=== PATIENT | female | born 1945 | race African-American/Black ===

== ENCOUNTER 2019-05-27 20:51 | Emergency (ER) | payer MEDICARE, OTHER ==
[~2019-05-27] VITALS: Ht 165.1 cm; Wt 54.5 kg
[2019-05-27] MEDS ORDERED: SODIUM CHLORIDE 0.9% 1,000 ML IV ONE (22:33)
[2019-05-27] MEDS ORDERED: PANTOPRAZOLE 40MG DR TABLET PO ONE (22:45)
[2019-05-27 23:08] LABS: BASOPHILS % 0.5 % (0.0-2.0); EOSINOPHILS % 0.8 % (0.0-5.0); HEMATOCRIT. 25.3 % (36.0-48.0); HEMOGLOBIN. 8.4 g/dL (12.0-16.0); LYMPHOCYTES % 18.3 % (20.0-50.0); MEAN CORPUSCULAR HEMOGLOBIN 29.6 pg (28.0-32.0); MEAN CORPUSCULAR VOLUME 89.1 fL (81.0-99.0); MEAN PLATELET VOLUME 9.6 fl (7.4-10.4); MONOCYTES % 6.9 % (2.0-8.0); NEUTROPHILS % 73.5 % (40.0-76.0); PLATELET 271 x1000/uL (130-400); RED BLOOD CELL COUNT 2.84 mill/uL (4.2-5.4); RED CELL DISTRIBUTION WIDTH 15.2 % (11.6-14.6)
[2019-05-27 23:13] LABS: CHLORIDE 106 mEq/L (98-107)
[2019-05-27 23:17] LABS: PARTIAL THROMBOPLASTIN TIME 21.9 sec (23.4-31.0)
[2019-05-28 05:20] VITALS: BP 152/65
== END 2019-05-28 05:20 | disposition home or self-care (01) ==
LOC: ER 20:51
DX: D50.0 Iron deficiency anemia secondary to blood loss (chronic) (principal); K29.21 Alcoholic gastritis with bleeding; F10.10 Alcohol abuse, uncomplicated; Y90.9 Presence of alcohol in blood, level not specified; Z71.41 Alcohol abuse counseling and surveillance of alcoholic; I10 Essential (primary) hypertension; F12.90 Cannabis use, unspecified, uncomplicated
CPT/HCPCS: 36415; 80053; 83690; 84484; 85025; 85610; 85730; 86850; 86900; 86901; 93005; 96360; 99285; J7030

== ENCOUNTER 2019-09-09 09:52 | Emergency (ER) | payer MEDICARE ==
[~2019-09-09] VITALS: Ht 162.6 cm; Wt 65.0 kg
[~2019-09-09 09:52] MED LIST: DOCU-138 MT; LACT10SO6 MT; LEVO500T2 PO; MEMA5TAB42 PO
[2019-09-09] MEDS ORDERED: ONDANSETRON HCL 4MG/2ML INJ IV STA (09:59)
[2019-09-09] MEDS ORDERED: FAMOTIDINE 20MG/2ML VIAL IV STA (09:59)
[2019-09-09] MEDS ORDERED: ENALAPRIL 2.5MG/2ML VIAL 2ML IV ONE (11:15)
[2019-09-09 11:34] LABS: BASOPHILS % 1.1 % (0.0-2.0); EOSINOPHILS % 0.6 % (0.0-5.0); HEMOGLOBIN. 10.4 g/dL (12.0-16.0); LYMPHOCYTES % 20.8 % (20.0-50.0); MEAN CORPUSCULAR HEMOGLOBIN 24.2 pg (28.0-32.0); MEAN CORPUSCULAR VOLUME 76.8 fL (81.0-99.0); MEAN PLATELET VOLUME 8.6 fl (7.4-10.4); MONOCYTES % 9.3 % (2.0-8.0); NEUTROPHILS % 68.2 % (40.0-76.0); PLATELET 334 x1000/uL (130-400); RED CELL DISTRIBUTION WIDTH 19.6 % (11.6-14.6)
[2019-09-09 11:39] LABS: CHLORIDE 105 mEq/L (98-107)
[2019-09-09 11:42] LABS: PROTHROMBIN TIME 10.9 sec (9.6-11.0)
[2019-09-09 11:45] LABS: ETHANOL BLOOD < 10 mg/dL
[2019-09-09 13:08] VITALS: BP 169/82
[2019-09-09] MEDS ORDERED: HYDRALAZINE 20MG/ML VIAL IV NR (13:15)
[2019-09-09 13:37] LABS: CLARITY URINE CLEAR (CLEAR); COLOR URINE YELLOW (YELLOW); KETONES URINE TRACE (NEGATIVE); LEUKOCYTE ESTERASE URINE 1+ (NEGATIVE); NITRITE URINE NEGATIVE (NEGATIVE); OCCULT BLOOD URINE NEGATIVE (NEGATIVE); PROTEIN URINE 2+ (NEGATIVE); SPECIFIC GRAVITY URINE 1.019 (1.005-1.030)
[2019-09-09 14:05] LABS: *AMPHETAMINES SCREEN URINE NEGATIVE (NEGATIVE); *BARBITURATES SCREEN URINE NEGATIVE (NEGATIVE); *BENZODIAZEPINES SCREEN URINE NEGATIVE (NEGATIVE); *COCAINE SCREEN URINE NEGATIVE (NEGATIVE)
[2019-09-09 14:06] LABS: CANNABINOID URINE SCREEN NEGATIVE (NEGATIVE); METHADONE URINE SCREEN NEGATIVE (NEGATIVE); OPIATES URINE SCREEN PRESUMTIVE POSITIVE (NEGATIVE); PHENCYCLIDINE URINE SCREEN NEGATIVE (NEGATIVE)
== END 2019-09-09 15:45 | disposition short-term general hospital (02) ==
LOC: ER 10:21
DX: R10.13 Epigastric pain (principal); R11.2 Nausea with vomiting, unspecified; R19.7 Diarrhea, unspecified; F03.90 Unspecified dementia, unspecified severity, without behavioral disturbance, psychotic disturbance, mood disturbance, and anxiety; K21.9 Gastro-esophageal reflux disease without esophagitis; I10 Essential (primary) hypertension; Z98.890 Other specified postprocedural states; F10.229 Alcohol dependence with intoxication, unspecified; Y90.0 Blood alcohol level of less than 20 mg/100 ml; Z88.0 Allergy status to penicillin; Z79.899 Other long term (current) drug therapy
CPT/HCPCS: 36415; 71045; 74176; 80053; 80305; 80320; 81003; 83690; 84484; 85025; 85610; 93005; 96374; 96375; 99285; J0360; J2405; J3490; G0480

== ENCOUNTER 2021-12-11 14:21 | Inpatient (IN) | payer MEDICARE, OTHER ==
[~2021-12-11] VITALS: Ht 165.1 cm; Wt 46.3 kg
[~2021-12-11 14:21] MED LIST changes: -LEVO500T2 PO; +PROT40 MT; +SUCR1TAB30 MT; +TOPUD MT
[2021-12-11 16:49] LABS: CHLORIDE 110 mEq/L (98-107)
[2021-12-11 17:06] LABS: EOSINOPHILS % 1.4 % (0.0-5.0); HEMATOCRIT. 34.5 % (36.0-48.0); HEMOGLOBIN. 10.6 g/dL (12.0-16.0); LYMPHOCYTES % 26.3 % (20.0-50.0); MEAN CORPUSCULAR HEMOGLOBIN 23.5 pg (28.0-32.0); MEAN CORPUSCULAR VOLUME 76.4 fL (81.0-99.0); MEAN PLATELET VOLUME 8.6 fl (7.4-10.4); MONOCYTES % 8.4 % (2.0-8.0); NEUTROPHILS % 62.9 % (40.0-76.0); PLATELET 256 x1000/uL (130-400); RED BLOOD CELL COUNT 4.52 mill/uL (4.2-5.4); RED CELL DISTRIBUTION WIDTH 19.1 % (11.6-14.6)
[2021-12-11] MEDS ORDERED: LABETALOL 5MG/ML SYR 20 MG/4 ML SYRINGE IV ONE (17:30)
[2021-12-11] MEDS ORDERED: LEVOFLOXACIN 750MG PREMIX 150 ML IV NR (17:45)
[2021-12-11] MEDS ORDERED: APIXABAN 5 MG TABLET PO NR (18:58)
[2021-12-11 23:00] VITALS: BP 190/90
[2021-12-12] MEDS ORDERED: POTASSIUM CHLORIDE 20MEQ TABLET SR PO NR (01:30)
[2021-12-12] MEDS ORDERED: LACTULOSE 20G/30ML UDC PO PRN (01:30)
[2021-12-12] MEDS: ACETAMINOPHEN 325MG TABLET PO PRN (01:54)
[2021-12-12] MEDS: CLONIDINE 0.1MG TABLET PO PRN ×3 (01:55→20:41)
[2021-12-12] MEDS: IPRATROPIUM/ALBUTEROL 0.5-3(2.5)MG/3ML NEB HHN PRN ×4 (02:02→21:05)
[2021-12-12 07:55] LABS: BASOPHILS % 0.7 % (0.0-2.0); EOSINOPHILS % 0.5 % (0.0-5.0); HEMATOCRIT. 31.2 % (36.0-48.0); HEMOGLOBIN. 9.6 g/dL (12.0-16.0); MEAN CORPUSCULAR HEMOGLOBIN 23.9 pg (28.0-32.0); MEAN CORPUSCULAR VOLUME 77.4 fL (81.0-99.0); MEAN PLATELET VOLUME 8.5 fl (7.4-10.4); MONOCYTES % 11.3 % (2.0-8.0); NEUTROPHILS % 65.5 % (40.0-76.0); PLATELET 255 x1000/uL (130-400); RED BLOOD CELL COUNT 4.03 mill/uL (4.2-5.4); RED CELL DISTRIBUTION WIDTH 19.3 % (11.6-14.6)
[2021-12-12 08:00] VITALS: BP 149/86
[2021-12-12 08:55] LABS: BG BASE EXCESS -2.8 mmol/L (-2.0-2.0); BG CARBOXYHEMOGLOBIN 0.3 % (0.5-1.5); BG DEOXYHEMOGLOBIN 1.9 % (0.0-5.0); BG FRACTION INSPIRED OXYGEN 36; BG HCO3 ACT 21.1 mmol/L (22.0-26.0); BG METHEMOGLOBIN 0.4 % (0.0-1.5); BG OXYGEN SATURATION 98.1 % (92.0-98.5); BG OXYHEMOGLOBIN 97.4 % (94.0-97.0); BG PCO2 33.8 mmHg (35.0-45.0); BG PH 7.414 (7.350-7.450); BG PO2 114.2 mmHg (75.0-100.0); BG SAMPLE SITE RIGHT RADIAL; BG TOTAL HEMOGLOBIN 10.7 g/dL (12.0-18.0); BG VENT MODE NASAL CANNULA
[2021-12-12] MEDS ORDERED: APIXABAN 5 MG TABLET PO SCH (09:00)
[2021-12-12] MEDS: PANTOPRAZOLE 40MG DR TABLET PO SCH (09:07)
[2021-12-12] MEDS: METHYLPREDNISOLONE SOD SUCC 40 MG/ML VIAL IV SCH ×3 (09:07→21:43)
[2021-12-12 09:35] LABS: CHLORIDE 114 mEq/L (98-107)
[2021-12-12] MEDS: FUROSEMIDE 100MG/10ML VIAL IVP SCH (11:16)
[2021-12-12 12:26] VITALS: BP 206/98
[2021-12-12] MEDS: AMLODIPINE 10MG TABLET PO SCH (13:45)
[2021-12-12 16:30] VITALS: BP 178/90
[2021-12-12] MEDS: HYDRALAZINE 20MG/ML VIAL IV SCH (17:23)
[2021-12-12 20:00] VITALS: BP 166/87
[2021-12-12] MEDS: LOSARTAN POTASSIUM 50 MG TABLET PO SCH (21:43)
[2021-12-13] VITALS: BP 165/85
[2021-12-13] MEDS: HYDRALAZINE 20MG/ML VIAL IV SCH ×4 (00:54→18:00)
[2021-12-13 04:00] VITALS: BP 150/73
[2021-12-13] MEDS: METHYLPREDNISOLONE SOD SUCC 40 MG/ML VIAL IV SCH ×3 (05:39→22:38)
[2021-12-13 06:16] LABS: HEMATOCRIT. 32.4 % (36.0-48.0); HEMOGLOBIN. 9.9 g/dL (12.0-16.0); MEAN CORPUSCULAR HEMOGLOBIN 23.4 pg (28.0-32.0); MEAN CORPUSCULAR VOLUME 76.5 fL (81.0-99.0); MEAN PLATELET VOLUME 8.7 fl (7.4-10.4); PLATELET 266 x1000/uL (130-400); RED BLOOD CELL COUNT 4.23 mill/uL (4.2-5.4)
[2021-12-13 08:00] VITALS: BP 147/81
[2021-12-13] MEDS: AMLODIPINE 10MG TABLET PO SCH (10:52)
[2021-12-13] MEDS: LOSARTAN POTASSIUM 50 MG TABLET PO SCH (10:52)
[2021-12-13] MEDS: PANTOPRAZOLE 40MG DR TABLET PO SCH (10:52)
[2021-12-13] MEDS: FUROSEMIDE 100MG/10ML VIAL IVP SCH (10:53)
[2021-12-13 12:00] VITALS: BP 141/75
[2021-12-13 14:26] LABS: PLATELET ESTIMATE NORMAL
[2021-12-13 16:00] VITALS: BP 143/77
[2021-12-13 20:00] VITALS: BP 152/76
[2021-12-14] VITALS: BP 161/86
[2021-12-14] MEDS: ACETAMINOPHEN 325MG TABLET PO PRN (00:10)
[2021-12-14] MEDS: HYDRALAZINE 20MG/ML VIAL IV SCH ×4 (00:11→18:52)
[2021-12-14 04:00] VITALS: BP 155/75
[2021-12-14] MEDS: METHYLPREDNISOLONE SOD SUCC 40 MG/ML VIAL IV SCH ×3 (05:58→22:11)
[2021-12-14 08:00] VITALS: BP 162/78
[2021-12-14] MEDS: PANTOPRAZOLE 40MG DR TABLET PO SCH (09:49)
[2021-12-14] MEDS: LOSARTAN POTASSIUM 50 MG TABLET PO SCH (09:49)
[2021-12-14] MEDS: FUROSEMIDE 100MG/10ML VIAL IVP SCH (09:50)
[2021-12-14] MEDS: AMLODIPINE 10MG TABLET PO SCH (09:50)
[2021-12-14 12:00] VITALS: BP 133/69
[2021-12-14 16:00] VITALS: BP 148/78
[2021-12-14 20:00] VITALS: BP 131/61
[2021-12-15] VITALS (7 sets, daily range): BP systolic 125–159; BP diastolic 56–80
[2021-12-15] MEDS: HYDRALAZINE 20MG/ML VIAL IV SCH ×4 (00:07→18:35)
[2021-12-15] MEDS: METHYLPREDNISOLONE SOD SUCC 40 MG/ML VIAL IV SCH ×3 (06:03→21:33)
[2021-12-15] MEDS: FUROSEMIDE 100MG/10ML VIAL IVP SCH (09:01)
[2021-12-15] MEDS: PANTOPRAZOLE 40MG DR TABLET PO SCH (09:01)
[2021-12-15] MEDS: LOSARTAN POTASSIUM 50 MG TABLET PO SCH (09:04)
[2021-12-15] MEDS: AMLODIPINE 10MG TABLET PO SCH (09:04)
[2021-12-15 12:18] LABS: BG BASE EXCESS -7.2 mmol/L (-2.0-2.0); BG CARBOXYHEMOGLOBIN 0.4 % (0.5-1.5); BG DEOXYHEMOGLOBIN 9.3 % (0.0-5.0); BG FRACTION INSPIRED OXYGEN 21; BG HCO3 ACT 15.8 mmol/L (22.0-26.0); BG METHEMOGLOBIN 0.1 % (0.0-1.5); BG OXYGEN SATURATION 90.7 % (92.0-98.5); BG OXYHEMOGLOBIN 90.2 % (94.0-97.0); BG PCO2 24.9 mmHg (35.0-45.0); BG PO2 60.5 mmHg (75.0-100.0); BG SAMPLE SITE LEFT RADIAL; BG VENT MODE ROOM AIR
[2021-12-15] MEDS ORDERED: APIX5TAB PO (19:06)
[2021-12-15] MEDS ORDERED: FURO-152 PO (19:06)
[2021-12-15] MEDS ORDERED: ASPI-1497 PO (19:06)
[2021-12-15] MEDS ORDERED: COR12 PO (19:06)
[2021-12-15] MEDS: ACETAMINOPHEN 325MG TABLET PO PRN (20:16)
[2021-12-16] MEDS: HYDRALAZINE 20MG/ML VIAL IV SCH ×4 (00:04→18:51)
[2021-12-16 04:00] VITALS: BP 152/68
[2021-12-16] MEDS: METHYLPREDNISOLONE SOD SUCC 40 MG/ML VIAL IV SCH ×2 (05:26→16:09)
[2021-12-16 08:00] VITALS: BP 145/66
[2021-12-16] MEDS: LOSARTAN POTASSIUM 50 MG TABLET PO SCH (11:14)
[2021-12-16] MEDS: AMLODIPINE 10MG TABLET PO SCH (11:14)
[2021-12-16] MEDS: FUROSEMIDE 100MG/10ML VIAL IVP SCH (11:15)
[2021-12-16] MEDS: PANTOPRAZOLE 40MG DR TABLET PO SCH (11:15)
[2021-12-16 12:00] VITALS: BP 144/70
[2021-12-16 16:00] VITALS: BP 152/72
[2021-12-16 19:40] VITALS: BP 174/92
[2021-12-18] MEDS ORDERED: APIXABAN 5 MG TABLET PO SCH (17:00)
== END 2021-12-16 20:23 | disposition home or self-care (01) | DRG 299 ==
LOC: ER 14:44 → EDBEDREQ 17:43 → 6EST 20:15 → EDBEDREQSVC 20:18 → EDBEDREQ 20:18 → EDBEDREQTM 20:18 → ENRESERV 22:06 → 6WST 12-12 11:30
PROVIDERS: ADMIT Internal Medicine; ATTEND Internal Medicine
DX: I82.412 Acute embolism and thrombosis of left femoral vein (principal); J96.00 Acute respiratory failure, unspecified whether with hypoxia or hypercapnia; J98.11 Atelectasis; I82.512 Chronic embolism and thrombosis of left femoral vein; E87.6 Hypokalemia; Z20.822 Contact with and (suspected) exposure to COVID-19; F03.90 Unspecified dementia, unspecified severity, without behavioral disturbance, psychotic disturbance, mood disturbance, and anxiety; F10.20 Alcohol dependence, uncomplicated; K21.9 Gastro-esophageal reflux disease without esophagitis; F17.200 Nicotine dependence, unspecified, uncomplicated; I11.9 Hypertensive heart disease without heart failure; Z86.711 Personal history of pulmonary embolism; Z96.659 Presence of unspecified artificial knee joint; Z88.0 Allergy status to penicillin
CPT/HCPCS: 36415; 36600; 71045; 71275; 80048; 80053; 82375; 82805; 83880; 84484; 85025; 85379; 87426; 93005; 93306; 93971; 94640; 99285; J0360; J1940; J1956; J2920; J3490

== ENCOUNTER 2023-09-24 01:04 | Emergency (ER) | payer MEDICARE, OTHER ==
[~2023-09-24] VITALS: Ht 165.1 cm; Wt 55.0 kg
[~2023-09-24 01:04] MED LIST changes: +CLON0.1T PO; +DOXY100T2 MT; +FURO20TA4 PO; -LACT10SO6 MT; +LOSA100T33 PO; +PANT40TA51 PO; -PROT40 MT; -TOPUD MT
[2023-09-24 01:27] VITALS: O2SAT 98
[2023-09-24 02:45] LABS: POTASSIUM 3.4 mEq/L (3.5-5.1)
[2023-09-24 02:46] LABS: CALCIUM 8.9 mg/dL (8.7-10.4)
[2023-09-24 02:51] LABS: CREATININE 1.2 mg/dL (0.6-1.0)
[2023-09-24 02:55] LABS: PARTIAL THROMBOPLASTIN TIME 27.8 sec (23.4-31.0); PROTHROMBIN TIME 10.8 sec (9.6-11.0)
[2023-09-24 03:17] LABS: BASOPHILS % 1.2 % (0.0-2.0); EOSINOPHILS % 2.9 % (0.0-5.0); HEMATOCRIT. 39.6 % (36.0-48.0); HEMOGLOBIN. 12.2 g/dL (12.0-16.0); LYMPHOCYTES % 25.4 % (20.0-50.0); MEAN CORPUSCULAR HEMOGLOBIN 25.6 pg (28.0-32.0); MEAN CORPUSCULAR HGB CONC 30.8 g/dL (31.0-37.0); MEAN CORPUSCULAR VOLUME 83.1 fL (81.0-99.0); MEAN PLATELET VOLUME 8.5 fl (7.4-10.4); MONOCYTES % 9.9 % (2.0-8.0); NEUTROPHILS % 60.6 % (40.0-76.0); PLATELET 393 x1000/uL (130-400); RED BLOOD CELL COUNT 4.77 mill/uL (4.2-5.4); RED CELL DISTRIBUTION WIDTH 16.7 % (11.6-14.6); WHITE BLOOD COUNT 8.1 x1000/uL (4.5-11.0)
[2023-09-24 04:53] VITALS: BP 142/73; PULSE 70; RESP 16; TEMP 98.8
== END 2023-09-24 06:51 | disposition home or self-care (01) ==
LOC: ER 01:04
DX: I10 Essential (primary) hypertension (principal); R04.0 Epistaxis; F17.200 Nicotine dependence, unspecified, uncomplicated; F03.90 Unspecified dementia, unspecified severity, without behavioral disturbance, psychotic disturbance, mood disturbance, and anxiety; Z88.0 Allergy status to penicillin; Z79.899 Other long term (current) drug therapy; Z90.710 Acquired absence of both cervix and uterus
CPT/HCPCS: 36415; 80048; 85025; 86850; 86900; 99283